=== PATIENT | male | born 1970 | race Caucasian/White ===

== ENCOUNTER 2024-05-09 09:51 | Outpatient (CLI) | payer BC, MEDICAID | END 2024-05-09 23:59 | disposition home or self-care (01) | LOC: CARD DIAG 09:51 | PROVIDERS: ATTEND Family Medicine | DX: I08.8 Other rheumatic multiple valve diseases (principal); N18.6 End stage renal disease; E11.22 Type 2 diabetes mellitus with diabetic chronic kidney disease | CPT/HCPCS: 93306 ==